=== PATIENT | female | born 1940 | race Caucasian/White ===

== ENCOUNTER 2017-08-12 16:10 | Emergency (ER) | payer MEDICARE, OTHER ==
[2017-08-12 16:27] VITALS: BP 143/60
--- NOTE | 2017-08-12 17:24 | UC ---
Zaina Buck SooYoung, scribed for David Guidry MD on 08/12/17 at 1644 . Skin Complaint HPI - HPI Summary HPI Summary: A 77 y/o F presents to [facility] with c/o lump on her R inner groin first noticed yesterday AM. Pt had a recent procedure for a brain aneurysm 6 days ago that went in through the groin. Procedure was done in [place]. She states the nodule is not tender. Denies calf tenderness or swelling. Pt is scheduled to see her PCP tomorrow. - History of Current Complaint Chief Complaint: UCSkin Time Seen by Provider: 08/12/17 16:36 Stated Complaint: LUMP ON GROIN AREA Hx Obtained From: Patient Hx Last Menstrual Period: post Onset/Duration: Lasting Days - noticed yesterday, Still Present Timing: Constant Onset Severity: Mild Current Severity: Mild Pain Intensity: 0 Pain Scale Used: 0-10 Numeric Location: Other - inner R groin Character: Raised - lump Associated Signs & Symptoms: Positive: Negative - Allergy/Home Medications Allergies/Adverse Reactions: Allergies Allergy/AdvReac Type Severity Reaction Status Date / Time No Known Allergies Allergy Verified 08/12/17 16:27 Review of Systems Skin: Other - lump to R inner groin - non-tender Musculoskeletal: Negative - no calf tenderness or swelling All Other Systems Reviewed And Are Negative: Yes PMH/Surg Hx/FS Hx/Imm Hx Previously Healthy: No Cardiovascular History: Myocardial Infarction Neurological History: Other Other Neurological History: brain aneurysm - Surgical History Surgical History: Yes Surgery Procedure, Year, and Place: CARDIAC CATH W/ 2 STENTS PLACED 03/23/2011 ( [employer] DR[employer] ELUTING STENT X 2; SAFE UP TO 3T) - Family History Known Family History: Positive: Cardiac Disease - sister of [place] - Social History Occupation: Retired Lives: With Family Alcohol Use: Rare Alcohol Amount: "a couple dalton or beers" Substance Use Type: None Smoking Status (MU): Never Smoked Tobacco Physical Exam Triage Information Reviewed: Yes Appearance: Well-Appearing, No Pain Distress Vital Signs: Initial Vital Signs Temp 98.3 F 08/12/17 16:22 Pulse 75 08/12/17 16:22 Resp 15 08/12/17 16:22 BP 143/60 08/12/17 16:22 Pulse Ox 100 08/12/17 16:22 Vital Signs Reviewed: Yes Eyes: Positive: Other: - EOMI, DONELL ENT Exam: Normal Neck: Positive: Supple, Nontender Respiratory: Positive: Lungs clear, Normal breath sounds Cardiovascular: Positive: RRR Abdomen Description: Positive: Nontender, Soft Bowel Sounds: Positive: Present Musculoskeletal: Positive: Strength Intact, ROM Intact, Other: - R femoral artery distal to inguinal crease, there is a mild swelling non pulsatile, no thrill or bruit osciltated; rest of leg looks nml, good capillary refill, good pulses distally Neurological: Positive: Alert - A&Ox3, Muscle Tone Normal Psychological Exam: Normal Psychological: Positive: Age Appropriate Behavior Skin Exam: Normal - warm, skin color reflects adequate perfusion, dry Course/Dx - Course Course Of Treatment: A 77 y/o F presents to [facility] [place] with c/o lump on her R inner groin first noticed yesterday AM. Pt had a recent procedure for a brain aneurysm 6 days ago that went in through the groin. Procedure was done in [place]. She states the nodule is not tender. Denies calf tenderness or swelling. Pt is scheduled to see her PCP tomorrow. Medications reviewed this visit. Elevated blood pressure noted, recommended f/u with PCP. DISCUSSED THE DIFFERENT POSSIBLE CAUSES OF THE FEMORAL SWELLING TO INCLUDE DISSECTION, ANEURYSM, PSEUDOANEURYSM AND AV FISTULA AND THE NEED TO GET AN ULTRASOUND IN THE EMERGENCY DEPARTMENT NOW FOR FURTHER EVALUATION AND TREATMENT. PATIENT TOLD TO GO DIRECTLY TO THE EMERGENCY DEPARTMENT FOR THE ULTRASOUND. - Diagnoses Provider Diagnoses: 1. Elevated blood pressure without diagnosis of hypertension. RIGHT FEMORAL ARTERY SWELLING Discharge - Discharge Plan Condition: Stable Disposition: OTHER Discharge Disposition Comment: TO EMERGENCY DEPARTMENT NOW FOR ULTRASOUND Referrals: Tami Dunn MD [Primary Care Provider] - Additional Instructions: GO DIRECTLY TO THE EMERGENCY DEPARTMENT FOR FURTHER EVALUATION OF THE SWELLING OF YOUR RIGHT FEMORAL ARTERY TO INCLUDE HAVING AN ULTRASOUND PERFORMED. The documentation as recorded by the Zaina holley SooYoung accurately reflects the service I personally performed and the decisions made by me, David Guidry MD.
== END 2017-08-12 16:58 ==
LOC: UCEAST 16:10
DX: R03.0 Elevated blood-pressure reading, without diagnosis of hypertension (principal); I77.89 Other specified disorders of arteries and arterioles; Z72.89 Other problems related to lifestyle
CPT/HCPCS: 99212; G0463

== ENCOUNTER 2019-02-10 09:31 | Emergency (ER) | payer MEDICARE, OTHER ==
[2019-02-10 09:54] VITALS: BP 131/75
--- NOTE | 2019-02-10 10:52 | UC ---
Throat Pain/Nasal Jesse HPI - HPI Summary HPI Summary: Pt with 24 hours sore throat, painful swallowing. no fever, chills + po with discomfort took APAP once,. no drooling. No difficulty swallowing. no ear pain, sinus pain. no sick contact. no travel Meds reviewed - History of Current Complaint Chief Complaint: UCRespiratory Stated Complaint: SORE THROAT Time Seen by Provider: 02/10/19 10:51 Hx Obtained From: Patient Hx Last Menstrual Period: post Pain Intensity: 3 - Allergies/Home Medications Allergies/Adverse Reactions: Allergies Allergy/AdvReac Type Severity Reaction Status Date / Time No Known Allergies Allergy Verified 02/10/19 09:54 PMH/Surg Hx/FS Hx/Imm Hx Previously Healthy: Yes - Surgical History Surgical History: Yes Surgery Procedure, Year, and Place: CARDIAC CATH W/ 2 STENTS PLACED 03/23/2011 ( [employer] ELUTING STENT X 2; SAFE UP TO 3T) - Family History Known Family History: Positive: Cardiac Disease - sister of [place], Non- Contributory - Social History Occupation: Retired Alcohol Use: Daily Alcohol Amount: "a couple dalton or beers" Substance Use Type: None Smoking Status (MU): Never Smoked Tobacco Review of Systems All Other Systems Reviewed And Are Negative: Yes Constitutional: Positive: Negative Skin: Positive: Negative Eyes: Positive: Negative ENT: Positive: Sore Throat Respiratory: Positive: Negative Cardiovascular: Positive: Negative Gastrointestinal: Positive: Negative Physical Exam - Summary Physical Exam Summary: Vital Signs Reviewed: Yes low grade temp A+Ox3, no distress, talking easy, comfortable sentences Eyes: Conjunctiva Clear, DONELL. EOM intact and full ENT: Hearing grossly normal TM x 2 clear, turbinates wnl, turbinates wnl, mmoist, uvula midline, + erythema posterior pharyns, + exudate left tonsil, no assymetry. Neck: Positive: Supple + submandibular LA L>R Respiratory: Positive: No respiratory distress, No accessory muscle use + CTA throughout no w/r Cardiovascular: RRR nl s1, s2 no m/r CBT <2 sec abd soft + BS nt/nd no guarding, no distension Musculoskeletal Exam: WALTON x 4 without difficulty Strength Intact, ROM Intact Neurological: Positive: Alert, + sensation throughout Psychological: Positive: Normal Response To Family Skin: Positive: no rash, no ecchymosis Triage Information Reviewed: Yes Vital Signs: Initial Vital Signs Temp 98.7 F 02/10/19 09:51 Pulse 72 02/10/19 09:51 Resp 18 02/10/19 09:51 BP 131/75 02/10/19 09:51 Pulse Ox 99 02/10/19 09:51 Throat Pain/Nasal Course/Dx - Course Course Of Treatment: Pt presents to with 24 hours sore throat, pain with swallowing. no sob, drooling. no other complaints on exam, VSS Pt with diffuse erythema, exudate left tonsil symmetric step neg concerned for erythema and exudate will start abx hydrate motrin/apap gargle return precaution agreement with plan - Differential Dx/Diagnosis Provider Diagnosis: Tonsillitis Discharge - Sign-Out/Discharge Documenting (check all that apply): Patient Departure All imaging exams completed and their final reports reviewed: No Studies - Discharge Plan Condition: Stable Disposition: HOME Prescriptions: Amoxicillin PO (*) [Amoxicillin 500 MG CAP*] 500 mg PO Q12H #14 cap Patient Education Materials: Tonsillitis (ED) Referrals: Tami Dunn MD [Primary Care Provider] - Additional Instructions: - Okay to alternate ibuprofen (Advil, Motrin) and Tylenol every 3 hours for pain. Take with food. Do NOT take for more than 4-5 days - Take antibiotics as prescribed until gone - Okay to gargle and spit warm salt water every 4 hours as needed for pain - Stay well hydrated - frequent sips of cold fluids will be soothing to your throat (popsicles, jello, ice cream, ice water). Avoid excess caffeine until your symptoms have resolved. -Throat infections are spread by oral secretions - do not share eating or drinking utensils until you symptoms are resolved. Clean items that may get your secretions such as cell phones, ipads, computer mouse, television remotes. Once you have been on antibiotics for 2 days, change your toothbrush and your pillowcase. - Contact your doctor to arrange a follow-up appointment as needed - Billing Disposition and Condition Condition: STABLE Disposition: Home
== END 2019-02-10 11:04 | disposition home or self-care (01) ==
LOC: UCEAST 09:31
DX: J03.90 Acute tonsillitis, unspecified (principal)
CPT/HCPCS: 87651; 99212; G0463

== ENCOUNTER 2019-04-10 08:32 | Emergency (ER) | payer MEDICARE, OTHER ==
--- NOTE | 2019-04-10 08:43 | ED ---
Palpitations / Dysrhythmia - HPI Summary HPI Summary: This patient is a 79 year old F presenting to [facility] accompanied by her daughter via EMS with a chief complaint of heart palpitations since 0700 today. Pt notes she was laying down when the symptoms began. She states her heart rate was almost 100 BPM following onset of symptoms. She notes she just moved into her new home so she has boxes to unpack. At this time, pt feels dry, thirsty, shaky, and weak. She denies thyroid issues, afib, pacemaker, hx of panic attacks , and hx of blood clots, but has hx of NH, cardiac stents, and HTN. Pt took her medications today at 0730. Her fly maker is Dr. Fajardo, who she sees once a year. Pt denies any fever, chills, erythema of eyes, sore throat, CP, SOB, cough , abdominal pain, N/V, dysuria, hematuria, myalgia, edema, rash, diaphoresis, shoulder/arm pain, or dizziness. Pt drinks alcohol, but does not smoke. Symptoms aggravated by nothing. Symptoms alleviated by nothing. - History of Current Complaint Hx Obtained From: Patient, Family/Forming Machine Operator - daughter Onset/Duration: Sudden Onset, Lasting Hours - since 0700 today Timing: Constant Severity Initially: Moderate Severity Currently: Mild Character: Fast Aggravating: Nothing Alleviating: Nothing Associated Signs & Symptoms: Negative - Allergy/Home Medications Allergies/Adverse Reactions: Allergies Allergy/AdvReac Type Severity Reaction Status Date / Time No Known Allergies Allergy Verified 04/10/19 08:34 PMH/Surg Hx/FS Hx/Imm Hx Previously Healthy: No Cardiovascular History: Reports: Hx Hypercholesterolemia, Other Cardiovascular Problems/Disorders - [address] Denies: Hx Pacemaker/ICD GI History: Reports: Hx Gastrointestinal Bleed Musculoskeletal History: Reports: Hx Osteoporosis Sensory History: Denies: Hx Hearing Aid Psychiatric History: Denies: Hx Panic Disorder - Cancer History Hx Chemotherapy: No Hx Radiation Therapy: No - Surgical History Surgical History: Yes Surgery Procedure, Year, and Place: CARDIAC CATH W/ 2 STENTS PLACED 03/23/2011 ( [employer] DRUG ELUTING STENT X 2; SAFE UP TO 3T) Infectious Disease History: Denies: History Other Infectious Disease - Family History Known Family History: Positive: Cardiac Disease - sister of [place], Non- Contributory - Social History Alcohol Use: Daily Alcohol Amount: "a couple dalton or beers" Hx Substance Use: No Substance Use Type: Reports: None Hx Tobacco Use: No Smoking Status (MU): Never Smoked Tobacco Do You Chew or Dip Tobacco: No Have You Chewed or Dipped Tobacco in the LAST YEAR: No Have You Smoked in the Last Year: No Review of Systems Constitutional: Other - positive - pt feels dry, thirsty, shaky Negative: Fever, Chills, Skin Diaphoresis Negative: Erythema Negative: Sore Throat Positive: Palpitations. Negative: Chest Pain Negative: Shortness Of Breath, Cough Negative: Abdominal Pain, Vomiting, Nausea Negative: dysuria, hematuria Musculoskeletal: Other - negative - shoulder/arm pain Negative: Myalgia, Edema Negative: Rash Neurological: Other - negative - dizziness Positive: Weakness All Other Systems Reviewed And Are Negative: Yes Physical Exam - Summary Physical Exam Summary: Constitutional: Well-developed, Well-nourished, Alert. (-) Distressed, Hands mildly tremulous Skin: Warm, Dry HENT: Normocephalic; Atraumatic Eyes: Conjunctiva normal Neck: Musculoskeletal ROM normal neck. (-) JVD, (-) Stridor, (-) Tracheal deviation Cardio: Rhythm regular, rate normal, Heart sounds normal; Intact distal pulses; The pedal pulses are 2+ and symmetric. Radial pulses are 2+ and symmetric. (-) Murmur Pulmonary/Chest wall: Effort normal. (-) Respiratory distress, (-) Wheezes, (-) Rales Abd: Soft, (-) tenderness, (-) Distension, (-) Guarding, (-) Rebound Musculoskeletal: (-) Edema Lymph: (-) Cervical adenopathy Neuro: Alert, Oriented x3 Psych: Mood and affect Normal, mildly anxious Triage Information Reviewed: Yes Vital Signs Reviewed: Yes Diagnostics - Laboratory Result Diagrams: 04/10/19 08:49 04/10/19 08:49 Lab Statement: Any lab studies that have been ordered have been reviewed, and results considered in the medical decision making process. - Radiology CXR Radiology Interpretation Completed By: Radiologist Summary of Radiographic Findings: IMPRESSION: NO EVIDENCE FOR ACUTE DISEASE. These findings were reviewed by Dr. Garcia. - EKG 0854 Cardiac Rate: NL - 79 BPM EKG Rhythm: Sinus Rhythm Summary of EKG Findings: 79 BPM, sinus rhythm, no STEMI Re-Evaluation - Re-Evaluation First Eval Re-Evaluation Time: 15:00 Comment: Pt admitted to drinking alcohol everyday with meals. Pt is agreeable to discharge. Course/Dx - Course Course Of Treatment: This patient is a 79 year old F presenting to [facility] accompanied by her daughter via EMS with a chief complaint of heart palpitations since 0700 today. Pt notes she was laying down when the symptoms began. She states her heart rate was almost 100 BPM following onset of symptoms. She notes she just moved into her new home so she has boxes to unpack. At this time, pt feels dry, thirsty, shaky, and weak. She denies thyroid issues, afib, pacemaker, hx of panic attacks, and hx of blood clots, but has hx of NH, cardiac stents, and HTN. Pt took her medications today at 0730. Her fly maker is Dr. Fajardo, who she sees once a year. Pt denies any fever, chills, erythema of eyes, sore throat, CP, SOB, cough, abdominal pain, N/ V, dysuria, hematuria, myalgia, edema, rash, diaphoresis, shoulder/arm pain, or dizziness. Pt drinks alcohol, but does not smoke. Symptoms aggravated by nothing. Symptoms alleviated by nothing. Physical exam shows hands are mildly tremulous and pt is mildly anxious. Lab results show MCV 103, MCH 34, absolute neuts 9.1, VBG pH 7.25, VBG HCO3 17.8, VBG O2 saturation 48.2, VBG base excess - 7.4, sodium 146, carbon dioxide 19, anion gap 19, BUN/creatinine ratio 24.3, glucose 38, POC glucose 169, lactic acid 5.1, magnesium 1.8, free T4 1.41, serum alcohol 24. EKG at 0854 shows 79 BPM, sinus rhythm, no STEMI. CXR IMPRESSION: NO EVIDENCE FOR ACUTE DISEASE. During ED course, pt was given fluids and dextrose. Dx are alcoholism, hypoglycemia, and alcoholic ketosis. Dr. Garcia suspects she became hypoglycemic due to poor caloric intake related to hard liquor. She does not have significant acidosis and is maintaining her blood sugar. Pt is agreeable to discharge. Pt was told to follow up with her primary care provider and [facility] within 2-3 days and to return to the ED for any new or worsening symptoms. - Diagnoses Provider Diagnoses: Alcoholism, Hypoglycemia, Alcoholic ketosis Discharge - Sign-Out/Discharge Documenting (check all that apply): Patient Departure - discharge Patient Received Moderate/Deep Sedation with Procedure: No - Discharge Plan Condition: Stable Disposition: HOME Patient Education Materials: Non-diabetic Hypoglycemia (ED), Alcohol Use Disorder (ED) Referrals: Tami Dunn MD [Primary Care Provider] - 2 Days [facility] [place] [Outside] - 2 Days Additional Instructions: Follow up with your primary care provider and [facility] within 2-3 days. Return to the ED for any new or worsening symptoms. - Attestation Statements Document Initiated by Scribe: Yes Documenting Scribe: Delmar Bynum Provider For Whom Scribe is Documenting (Include Credential): Dr. Bill Garcia MD Scribe Attestation: Delmar Buck scribed for Dr. Bill Garcia MD on 04/10/19 at 1547. Status of Scribe Document: Ready
--- OUTSIDE RECORDS SUMMARY | 2019-04-10 08:47 | XMS REPORT | Continuity of Care Document ---
:1940 External Reference #:[id number] Author Name Stephenie Ennis PA-C Address [address] [place] [address] [place] [address] Care Team Providers Name Role Phone Tami Dunn MD Primary Care Physician Unavailable Payers Date Identification Numbers Payment Provider Subscriber Policy Number: [id number] Medicare Keyla Caicedo PayID: [id number] [facility] [address] [facility] [place] [address] Policy Number: [id number] [facility] Keyla Caicedo Group Number: [id number] [address] PayID: [id number] [place] [address] Problems Active Problems Provider Date Dysphagia Stephenie Ennis PA-C Onset: 02/12/2019 Sore throat symptom Stephenie Ennis PA-C Onset: 02/12/2019 Gastroesophageal reflux disease Stephenie Ennis PA-C Onset: 02/12/2019 Diaphragmatic hernia Tayo Dee M.D. Onset: 04/21/2013 Social History Type Date Description Comments Sex Unknown Tobacco Use Start: Unknown End: Unknown Patient is a former smoker Smoking Status Reviewed: 03/17/19 Patient is a former smoker Allergies, Adverse Reactions, Alerts Description No Known Drug Allergies Medications Active Medications SIG Qnty Indications Ordering Provider Date Pantoprazole Sodium 1 by mouth 30tabs K21.9 Lissy 03/17/2019 20mg every day MD Renny Tablets DR Metoprolol Succinate Daily Unknown ER 25mg Tablets ER 24HR Plavix 1 by mouth Unknown 75mg Tablets every day Atorvastatin Calcium Daily Unknown 20mg Tablets Amlodipine Besylate 1 by mouth Unknown 2.5mg every day Tablets History Medications Pantoprazole Sodium 1 by mouth daily 30tabs K21.9 Lissy 02/12/2019 - at least 30min MD Renny 03/17/[address] before breakfast No Active Unknown 04/24/2013 - Medications 02/12/2019 Colyte-Flavor Packs As directed 1units 553.3 Tayo Dee M.D. 2012 - 04/24/2013 240gm Solution Rec Miralax As directed 553.3 Tayo Dee M.D. 04/21/2013 - 3350NF Powder 04/24/2013 Vital Signs Date Vital Result Comment 03/17/2019 12:57pm Height 64 inches 5'4" 02/12/2019 10:18am Height 64 inches 5'4" Weight 120.00 lb BP Systolic 127 mmHg BP Diastolic 74 mmHg Heart Rate 83 /min BMI (Body Mass Index) 20.6 kg/m2 04/21/2013 2:27pm Height 64 inches 5'4" Weight 115.00 lb BP Systolic 130 mmHg BP Diastolic 80 mmHg Heart Rate 72 /min BMI (Body Mass Index) 19.7 kg/m2 Results Test Date Facility Test Result H/L Range Note Surgical 04/24/2013 [facility] S RUN DATE: Pathology 04/30/ <SEE NOTE> Clotest 04/24/2013 [facility] Clotest (SEE NOTE) Laboratory test 03/28/2013 [facility] Pylori AB <pending > finding [address] [place] [address] Ser QN(!) [place] [address] [phone] T3 Uptake <pending> Vitamin D 1,25 Dihodroxy <pending> Vitamin B12/Folate 03/28/2013 [facility]#Other Observations < pending> Laboratory test 03/28/2013 [facility] T4 Free Direct <pending> finding TSH And T4 03/28/2013 [facility] TSH Thyroid Stim <pending> Hormone(!) T4 Total Thyroxine Mass/Vol <pending> Laboratory test 03/28/2013 [facility] H Pylori AB Ser QN(!) <pending > finding Jose Cruz 05/15/2012 [facility]#Other Observations <pending> Jose Cruz 05/03/2011 [facility]#Other Observations <pending> Jose Cruz 03/23/2011 [facility]#Other Observations <pending> Jose Cruz 04/28/2010 [facility]#Other Observations <pending> Procedures Date Code Description Status 04/24/2013 40901 EGD+Biopsy Single Or Multiple Completed 08/01/2006 09707 EGD+Biopsy Single Or Multiple Completed Encounters Type Date Location Provider Dx Diagnosis Office Visit 02/12/2019 [facility]enter[facility] Stephenie Mendosa K21.9 Gastro- esophageal 10:30a [facility] En[facility] PA-C reflux disease without esophagitis R07.0 Pain in throat R13.10 Dysphagia, unspecified Office Visit 04/21/2013 [facility] Tayo Petersen 553.3 Hernia 2:30p [facility] Dee M.D. Diaphragmatic 536.8 Stomach Dyspepsia & Other Spec Disorders Of Function Plan of Treatment 03/17/2019 - JOHN Lebron-CK21.9 Gastro-esophageal reflux disease without esophagitisNew Medication:Pantoprazole Sodium 20 mg - 1 by mouth every day
[2019-04-10 09:05] LABS: ABS Eosinophils 0.1 10^3/ul (0-0.6); ABS Lymphocytes 1.3 10^3/ul (1.0-4.8); ABS Monocytes 0.4 10^3/ul (0-0.8); ABS Neutrophils 9.1 10^3/ul (1.5-7.7); Eosinophil % 0.6 %; Hematocrit 41 % (35-47); Hemoglobin 13.6 g/dL (12.0-16.0); Lymphocyte % 11.9 %; Mean Corpuscular HGB Conc 33 g/dL (31-36); Mean Corpuscular Hemoglobin 34 pg (27-31); Mean Corpuscular Volume 103 fL (80-97); Mean Platelet Volume 8.3 fL (7.4-10.4); Platelet Count 231 10^3/uL (150-450); Red Blood Count 3.98 10^6 /uL (3.70-4.87); Red Cell Distribution Width 13 % (10-15); White Blood Count 10.8 10^3/uL (3.5-10.8)
[2019-04-10 09:26] LABS: Albumin 4.2 g/dL (3.2-5.2); Albumin/Globulin Ratio 1.5 (1-3); BUN/Creatinine Ratio 24.3 (8-20); Calcium 9.6 mg/dL (8.6-10.3); EGFR African American 97.2 (>60); EGFR Non-African American 80.3 (>60); Globulin 2.8 g/dL (2-4); Magnesium 1.8 mg/dL (1.9-2.7); Potassium 3.6 mmol/L (3.5-5.0); Total Bilirubin 0.7 mg/dL (0.2-1.0)
[2019-04-10] MEDS ORDERED: Dextrose 50% Syringe 50 ML* 25 GM/50 ML SYRINGE IV PUSH ONE (09:31)
[2019-04-10 09:40] LABS: TSH (Thyroid Stimulating Horm) 1.52 mcIU/mL (0.34-5.60)
[2019-04-10 09:42] LABS: Free T4 1.41 ng/dL (0.61-1.12)
[2019-04-10] MEDS ORDERED: Dextrose 50% VIAL 50 ml IV ONE (10:00)
[2019-04-10] MEDS ORDERED: NS 0.9% 1000 ML** 1,000 ML IV ONE (11:28)
[2019-04-10 14:10] LABS: Urine Benzodiazepine Screen None Detected (None Detect); Urine Opiates Screen None Detected (None Detect)
[2019-04-10 14:53] LABS: Urine Appearance Clear; Urine Bacteria 1+ (Absent); Urine Bilirubin Negative (Negative); Urine Blood 2+ (Negative); Urine Color Yellow; Urine Glucose 3+(>=500 mg/dL) (Negative); Urine Ketones 2+ (Negative); Urine Nitrite Negative (Negative); Urine Protein Negative (Negative); Urine Red Blood Cell Absent (Absent); Urine Specific Gravity 1.015 (1.010-1.030); Urine Squamous Epithelial Cell Present (Absent); Urine Urobilinogen Negative (Negative); Urine White Blood Cell Trace(0-5/hpf) (Absent)
[2019-04-10 15:22] VITALS: BP 108/58
== END 2019-04-10 15:23 | disposition home or self-care (01) ==
LOC: ED 08:32
DX: F10.20 Alcohol dependence, uncomplicated (principal); E16.2 Hypoglycemia, unspecified; E88.89 Other specified metabolic disorders; E78.00 Pure hypercholesterolemia, unspecified; Z95.5 Presence of coronary angioplasty implant and graft; Z79.899 Other long term (current) drug therapy
CPT/HCPCS: 36415; 71045; 80053; 80307; 80320; 81003; 81015; 82803; 83605; 83735; 84439; 84443; 84484; 85025; 87077; 87086; 87186; 93005; 96360; 96361; 99284; G0480

== ENCOUNTER 2019-06-30 07:46 | Day surgery (SDC) | payer MEDICARE, OTHER ==
[2019-06-30] MEDS ORDERED: Propofol* 10 MG/ML 20 ML BTL ONE (08:24)
[2019-06-30] MEDS ORDERED: Lidocaine 2% PF * 5 ML VIAL ONE (08:24)
[2019-06-30 10:02] VITALS: BP 102/50
--- NOTE | 2019-06-30 11:57 | OP ---
DATE OF OPERATION: 06/30/2019 - [facility] DATE OF : 1940. SURGEON: Sam Dior MD ANESTHESIA: Monitored anesthesia care. PREOPERATIVE DIAGNOSIS: Cataract, right eye. POSTOPERATIVE DIAGNOSIS: Cataract, right eye. OPERATIVE PROCEDURE: Extracapsular cataract extraction of the right eye with intraocular lens implant. IMPLANT: SN60WF 22.0 diopter lens to the right eye. COMPLICATIONS: None. DESCRIPTION OF PROCEDURE: The patient was given phenylephrine 2.5 % and cyclopentolate 1% eye drops to the operative eye in the preoperative area. The patient was taken to the operating room where a time-out was taken to identify the correct patient, site, and side of surgery. The patient's right eye was prepped and draped in the usual sterile fashion with 5% Betadine. A second time- out was taken to verify the correct patient, side, and site of surgery, as well as the correct lens implant. A lid speculum was placed to the right eye. A 1mm paracentesis blade was used to make a clear corneal incision. Preservative-free 1% lidocaine was injected into the anterior chamber. DisCoVisc was then injected into the anterior chamber. A 2.75 mm keratome blade was used to make a triplanar incision. A cystotome initiated a capsulorrhexis, which was completed with Utrata forceps in a continuous and curvilinear manner. Hydrodissection of the lens was performed with BSS on a cannula. The lens could be spun in a capsular bag. The phacoemulsification handpiece was used with a divide-and- conquer technique to remove the nucleus. The I/A handpiece then removed the residual cortical lens material. DisCoVisc was injected to inflate the capsular bag. The planned SN60WF 22.0 diopter lens was injected into the capsular bag. The residual DisCoVisc was removed from the eye with the I/A handpiece. The corneal incisions were hydrated and no leaks occurred at physiologic pressure around 20 mmHg per palpation. The lid speculum was removed and drapes were removed. Maxitrol ointment was placed to the surface of the operative eye. An adhesive patch and shield was then placed on the operative eye. The patient was taken to the postoperative area in stable condition. [id number]/[facility] #: [id number] [facility]
[2019-06-30] MEDS ORDERED: Cyclopentolate 1% OPTH.SOL* 2 ML BTL ONE (14:16)
[2019-06-30] MEDS ORDERED: Neomycin/Polymy/Dex OPHTH.OIN* 3.5 GM ONE (14:16)
[2019-06-30] MEDS ORDERED: acetaZOLAMIDE TAB* 250 MG ONE (14:16)
[2019-06-30] MEDS ORDERED: Tetracaine 0.5% OPTH.SOL 4 ML* 1 DROP BTL ONE (14:16)
[2019-06-30] MEDS ORDERED: Lidocaine 1% MPF ** 5 ML VIAL ONE (14:16)
[2019-06-30] MEDS ORDERED: Povidone Iodine 5% OPTH* 30 ML BTL ONE (14:16)
[2019-06-30] MEDS ORDERED: Phenylephrine OPHTH SOL 2.5%* 2 ML ONE (14:16)
[2019-06-30] MEDS ORDERED: Ketorolac 0.5% OPHTH (NF) 0.5 % 5 ML BTL ONE (14:16)
[2019-06-30] MEDS ORDERED: Tropicamide 1% OPTH.SOL* BTL ONE (14:16)
== END 2019-06-30 09:52 | disposition home or self-care (01) ==
LOC: OREAST 07:46
PROVIDERS: ATTEND Student in an Organized Health Care Education/Training Program
DX: H25.811 Combined forms of age-related cataract, right eye (principal); H35.3131 Nonexudative age-related macular degeneration, bilateral, early dry stage; I10 Essential (primary) hypertension; I67.1 Cerebral aneurysm, nonruptured; G45.0 Vertebro-basilar artery syndrome; I25.10 Atherosclerotic heart disease of native coronary artery without angina pectoris; I25.2 Old myocardial infarction; Z95.5 Presence of coronary angioplasty implant and graft; Z87.891 Personal history of nicotine dependence; Z79.01 Long term (current) use of anticoagulants; K21.9 Gastro-esophageal reflux disease without esophagitis; E78.5 Hyperlipidemia, unspecified
CPT/HCPCS: A9270-GY; J2704; V2632

== ENCOUNTER 2019-07-07 10:04 | Day surgery (SDC) | payer MEDICARE, OTHER ==
[~2019-07-07 10:04] MED LIST: Acetaminophen TAB* 325 MG PO PRN; Cyclopentolate 1% OPTH.SOL* 2 ML BTL ONE; Ketorolac 0.5% OPHTH (NF) 0.5 % 5 ML BTL ONE; Lidocaine 1% MPF ** 5 ML VIAL ONE; Neomycin/Polymy/Dex OPHTH.OIN* 3.5 GM ONE; Phenylephrine OPHTH SOL 2.5%* 2 ML ONE; Povidone Iodine 5% OPTH* 30 ML BTL ONE; Tetracaine 0.5% OPTH.SOL 4 ML* 1 DROP BTL ONE; Tropicamide 1% OPTH.SOL* BTL ONE
[2019-07-07] MEDS ORDERED: Midazolam* 1 MG/ML 2 ML VIAL (2 MG) ONE (11:06)
[2019-07-07] MEDS ORDERED: fentaNYL* 50 MCG/ML 2 ML VIAL (100 MCG VIAL) ONE (11:06)
[2019-07-07 12:30] VITALS: BP 106/51
--- NOTE | 2019-07-07 12:58 | OP ---
DATE OF OPERATION: 07/07/2019 - [facility] DATE OF : 1940. SURGEON: Sam Dior MD ANESTHESIA: Monitored anesthesia care. PREOPERATIVE DIAGNOSIS: Cataract, left eye. POSTOPERATIVE DIAGNOSIS: Cataract, left eye. OPERATIVE PROCEDURE: Extracapsular cataract extraction of the left eye with intraocular lens implant. IMPLANT: SN60WF 22.0 diopter lens to the left eye. COMPLICATIONS: None. DESCRIPTION OF PROCEDURE: The patient was given phenylephrine 2.5 % and cyclopentolate 1% eye drops to the operative eye in the preoperative area. The patient was taken to the operating room where a time-out was taken to identify the correct patient, site, and side of surgery. The patient's left eye was prepped and draped in the usual sterile fashion with 5% Betadine. A second time- out was taken to verify the correct patient, side, and site of surgery, as well as the correct lens implant. A lid speculum was placed to the left eye. A 1mm paracentesis blade was used to make a clear corneal incision. Preservative-free 1% lidocaine was injected into the anterior chamber. DisCoVisc was then injected into the anterior chamber. A 2.75 mm keratome blade was used to make a triplanar incision. A cystotome initiated a capsulorrhexis, which was completed with Utrata forceps in a continuous and curvilinear manner. Hydrodissection of the lens was performed with BSS on a cannula. The lens could be spun in a capsular bag. The phacoemulsification handpiece was used with a divide-and- conquer technique to remove the nucleus. The I/A handpiece then removed the residual cortical lens material. DisCoVisc was injected to inflate the capsular bag. The planned SN60WF 22.0 diopter lens was injected into the capsular bag. The residual DisCoVisc was removed from the eye with the I/A handpiece. The corneal incisions were hydrated and no leaks occurred at physiologic pressure around 20 mmHg per palpation. The lid speculum was removed and drapes were removed. Maxitrol ointment was placed to the surface of the operative eye. An adhesive patch and shield was then placed on the operative eye. The patient was taken to the postoperative area in stable condition. [id number] #: [id number] [facility]
== END 2019-07-07 12:22 | disposition home or self-care (01) ==
LOC: OREAST 10:04
PROVIDERS: ATTEND Student in an Organized Health Care Education/Training Program
DX: H25.812 Combined forms of age-related cataract, left eye (principal); H35.3131 Nonexudative age-related macular degeneration, bilateral, early dry stage; I10 Essential (primary) hypertension; E78.00 Pure hypercholesterolemia, unspecified; I25.10 Atherosclerotic heart disease of native coronary artery without angina pectoris; I25.2 Old myocardial infarction; Z95.5 Presence of coronary angioplasty implant and graft; Z87.891 Personal history of nicotine dependence
CPT/HCPCS: A9270-GY; J2250; J3010; V2632